=== PATIENT | female | born 1955 | race African-American/Black ===

== ENCOUNTER 2021-05-08 10:36 | Emergency (ER) | payer OTHER ==
[2021-05-08] MEDS ORDERED: Ibuprofen 800 MG TAB ONE (10:50)
== END 2021-05-08 10:57 | disposition home or self-care (01) ==
LOC: BURERS 10:36
DX: S16.1XXA Strain of muscle, fascia and tendon at neck level, initial encounter (principal); I10 Essential (primary) hypertension; J45.909 Unspecified asthma, uncomplicated; V49.10XA Passenger injured in collision with unspecified motor vehicles in nontraffic accident, initial encounter
CPT/HCPCS: 99284